=== PATIENT | female | born 1975 | race Caucasian/White ===

== ENCOUNTER 2022-10-09 23:40 | Emergency (ER) | payer OTHER ==
[2022-10-10] MEDS ORDERED: Ondansetron PF 4 MG/2 ML Vial ONE (05:07)
[2022-10-10] MEDS ORDERED: Morphine 4 MG/ML VIAL ONE (05:07)
[2022-10-10 05:25] LABS: #Basophils 0.1 thou/uL (0.0-0.2); #Eosinphils 0.4 thou/uL (0.0-0.7); #Lymphocytes 2.7 thou/uL (1.20-3.40); #Monocytes 0.8 thou/uL (0.11-0.59); %Basophils 0.6 % (0.0-1.0); %Eosinophils 4.3 % (0.0-10.0); %Lymphocytes 30.1 % (21.0-51.0); %Monocytes 9.3 % (0.0-10.0); %Neutrophils 55.7 % (42.0-75.0); Hemoglobin 12.4 g/dL (12.0-16.0); Mean Corpuscular HGB CONC 34.8 g/dL (32.0-36.0); Mean Corpuscular Hemoglobin 34.1 pg (27.0-31.0); Mean Corpuscular Volume 98.1 fl (78.0-98.0); Mean Platelet Volume 6.5 fL (7.4-10.4); Platelet Count 346 10x3/uL (130-400); RBC Distribution Width 11.5 % (11.5-14.5); Red Blood Cell (RBC) Count 3.63 mill/uL (4.20-5.40); White Blood Cell (WBC) Count 8.9 10x3/uL (4.8-10.8)
[2022-10-10 05:53] LABS: ALT (SGPT) 27 U/L (8-55); AST (SGOT) 23 U/L (5-34); Alkaline Phosphatase 138 U/L (40-110); Anion Gap 10 mmol/L (10-20); BUN (Urea Nitrogen) 13 mg/dL (7.0-18.7); Bilirubin, Total 0.3 mg/dL (0.2-1.2); CRP (Inflammatory) 1.88 mg/dL (= or < 0.5); Calc. Creatinine Clearance 0 mL/min (70-130); Calcium 9.7 mg/dL (7.8-10.44); Carbon Dioxide 29 mmol/L (22-29); Chloride 101 mmol/L (98-107); Estimated GFR 85; Glucose 110 mg/dL (70-105); Potassium 4.1 mmol/L (3.5-5.1); Sodium 136 mmol/L (136-145)
[2022-10-10] MEDS ORDERED: fentaNYL 50 mcg/mL 1 mL Vial ONE ×2 (05:58→06:36)
[2022-10-10] MEDS ORDERED: Midazolam HCl 2 mg/2 ml Vial ONE (06:06)
[2022-10-10] MEDS ORDERED: Dexamethasone 10 MG/ML VIAL ONE (07:38)
[2022-10-10] MEDS ORDERED: Diazepam 10 MG/2 ML SYRINGE ONE (07:38)
[2022-10-10] MEDS ORDERED: Iopamidol-370 76% 500 ML MDV (1 ML CHARGE) ONE (09:34)
== END 2022-10-10 08:26 | disposition home or self-care (01) ==
LOC: ERS 23:40
DX: M54.9 Dorsalgia, unspecified (principal)
CPT/HCPCS: 36415; 72129; 80053; 83605; 85025; 85652; 86140; 87040; 96374; 96375; J1100; J2250; J2270; J2405; J3010; J3360; Q9967